=== PATIENT | female | born 1985 | race Caucasian/White ===

== ENCOUNTER 2016-05-30 09:09 | Inpatient (IN) | payer OTHER ==
[~2016-05-30] VITALS: Ht 160 cm; Wt 114.0 kg
[2016-08-29 10:24] VITALS: BP 126/58
[2016-08-29 10:35] LABS: POINT-OF-CARE METER ID UU14174212
[2016-08-29 17:20] VITALS: BP 123/83
[2016-08-29 19:04] VITALS: BP 132/77
[2016-08-29 23:06] VITALS: BP 103/54
[2016-08-30 03:09] VITALS: BP 133/76
[2016-08-30 07:00] LABS: HEMATOCRIT 33.6 % (36.0-46.0); MCV 81.8 FL (83-99); PLATELET COUNT 375 K/uL (156-360); RBC DIS.WIDTH-CV 13.2 % (11.8-14.6); RBC DIS.WIDTH-SD 39.1 % (39-53); RED BLOOD COUNT 4.11 M/uL (3.80-5.20); WHITE BLOOD COUNT 18.1 K/uL (4.1-10.2)
[2016-08-30 07:20] LABS: ANION GAP 8 MEQ/L (2-14); CHLORIDE 102 MEQ/L (99-109); GFR ESTIMATE (CALCULATED) > 59 mL/min/; GLUCOSE 114 mg/dL (70-99); MAGNESIUM 1.5 mg/dl (1.3-2.7); POTASSIUM 4.2 MEQ/L (3.7-5.4); SAMPLE HEMOLYSIS CHECK 0; SAMPLE ICTERIC CHECK 0; SAMPLE LIPEMIA CHECK 0; SODIUM 136 MEQ/L (136-147); UREA NITROGEN (BUN) 8 mg/dL (9-23)
[2016-08-30] MEDS ORDERED: HYDROCODON-ACE1 EAC7 PO (07:51)
[2016-08-30 08:32] VITALS: BP 120/65
[2016-08-30 11:36] LABS: POINT-OF-CARE METER ID UU14162508
[2016-08-30 12:38] VITALS: BP 97/53
[2016-08-30 16:29] VITALS: BP 114/65
== END 2016-08-30 17:54 | disposition home or self-care (01) | DRG 621 ==
LOC: 2SOUTH 09:09 → 2EAST 08-29 17:19
PROVIDERS: Surgery
PROC: 0DB64Z3 Excision of Stomach, Percutaneous Endoscopic Approach, Vertical (ICD-10-PCS; principal; 2016-08-29)
DX: E66.01 Morbid (severe) obesity due to excess calories (principal); N97.9 Female infertility, unspecified; Z68.41 Body mass index [BMI] 40.0-44.9, adult
CPT/HCPCS: 80048; 82948; 83735; 84100; 85027; C9113; J0131; J0330; J0690; J1100; J1170; J1644; J1650; J1815; J1885; J2250; J2405; J2710; J2765; J3480; J7120; Q0169; S0020